=== PATIENT | male | born 1995 | race Two or more races ===

== ENCOUNTER 2022-10-24 13:52 | Emergency (ER) | payer OTHER ==
[~2022-10-24] VITALS: Ht 180.3 cm; Wt 97.5 kg
== END 2022-10-24 17:26 | disposition home or self-care (01) ==
LOC: ER 13:52
DX: K52.89 Other specified noninfective gastroenteritis and colitis (principal)

== ENCOUNTER 2025-05-07 08:11 | Emergency (ER) | payer OTHER ==
[~2025-05-07] VITALS: Ht 177.8 cm; Wt 93.0 kg
[2025-05-07] MEDS ORDERED: ONDANSETRON HCL 2 MG/ML VIAL IV ONE (09:30)
[2025-05-07] MEDS ORDERED: FAMOtidine 10 MG/ML (4ML VIAL) IV ONE (09:30)
[2025-05-07] MEDS ORDERED: 0.9 % SODIUM CHLORIDE 1,000 ML IV ONE (09:30)
[2025-05-07] MEDS ORDERED: ONDANSETRON HCL 2 MG/ML VIAL ONE (09:33)
[2025-05-07] MEDS ORDERED: FAMOTIDINE/PF 20 MG/2 ML VIAL ONE (09:33)
[2025-05-07 10:15] LABS: BASO % 0.3 % (0.1-1.2); EOS # 0.01 (0.04-0.54); EOS % 0.1 % (0.7-7.0); LYMPH # 0.41 (1.18-3.74); LYMPH % 3.8 % (19.3-53.1); MEAN PLATELET VOLUME 10.30 fl (9.4-12.4); MONO # 0.70 (0.24-0.82); MONO % 6.5 % (4.7-12.5); NEUT # 9.53 (1.56-6.13); NEUT % 88.8 % (34.0-71.1); RED CELL DISTRIBUTION WIDTH 12.2 % (11.6-14.4)
[2025-05-07 10:36] LABS: COVID-19 AG NEGATIVE (NEGATIVE)
[2025-05-07 10:45] LABS: URINE APPEARANCE Turbid; URINE BILIRRUBIN Negative (NEGATIVE); URINE BLOOD Negative; URINE COLOR Dark Yellow; URINE GLUCOSE Negative (NEGATIVE); URINE KETONE Negative (NEGATIVE); URINE LEUKOCYTE Negative; URINE NITRATE Negative; URINE PROTEIN 30 (NEGATIVE); URINE UROBILINOGEN 1.0 E.U./dl
[2025-05-07 10:47] LABS: URINE BACTERIA 20.5 uL (0.0-1933); URINE EPITHELIAL CELLS 5.6 uL (0.0-38.8); URINE RBC 40.3 uL (0.0-20.8); URINE WBC 5.3 uL (0.0-23.2)
[2025-05-07 10:47] LABS: INR 1.08
[2025-05-07 10:59] LABS: URINE CAST 0.99 uL (0.0-1.40)
[2025-05-07 11:13] LABS: ALT/SGPT 45.0 U/L (12-78); AST/SGOT 15.0 U/L (15-37); BILIRUBIN TOTAL 0.87 mg/dL (0.3-1.2); BUN CREA RATIO 18.0 (7.0-25.0); CREATININE SERUM 1.12 mg/dL (0.70-1.30); GFR 77.51; GLOBULINA 3.3 G/DL (2.4-3.5); GLUCOSE FASTING 130.0 mg/dL (65-100); OSMOLALITY SERUM 284.0 MOSM/KG (275-295)
[2025-05-07] MEDS ORDERED: PROBIOTIC1 EAC2 PO (13:09)
[2025-05-07] MEDS ORDERED: ZOFRAN8 MG PO (13:09)
[2025-05-07] MEDS ORDERED: PEPCID AC20 MG PO (13:09)
== END 2025-05-07 13:53 | disposition home or self-care (01) ==
LOC: ER 08:12
PROVIDERS: General Practice
DX: K52.89 Other specified noninfective gastroenteritis and colitis (principal); R11.2 Nausea with vomiting, unspecified; Z20.822 Contact with and (suspected) exposure to COVID-19